=== PATIENT | male | born 1995 | race American Indian/Alaskan Native ===

== ENCOUNTER 2020-07-28 20:48 | Emergency (ER) | payer BC ==
[2020-07-28] MEDS ORDERED: IBUPROFEN 800 MG TAB PO ONE (21:05)
--- NOTE | 2020-07-28 21:10 | Emergency Department Report ---
ED General Adult HPI - General Stated complaint: BODYACHES/FLU SX/THROAT PAIN PUI?: Yes Time Seen by Provider: 07/28/20 21:05 - History of Present Illness Initial comments: This is a very pleasant 25-year-old otherwise healthy male who presents the emergency department chief complaint of generalized body aches, fever as high as 103, sore throat, malaise, loss of smell over the past 3 days. He reports 2 other family members also have similar symptoms. He denies any known past medical history, current medication use or known allergies to medications that he is aware of. He denies any associated chest pain, shortness of breath, nausea,, diarrhea, headache, dizziness, blurry vision, weakness or any other associated symptoms. - Related Data Previous Rx's Medication Instructions Recorded Last Taken Type Acetaminophen [8 Hour 650 mg PO Q6HR #30 tablet.er 07/28/20 Unknown Rx Acetaminophen] Amoxicillin [Trimox CAP] 500 mg PO BID #20 capsule 07/28/20 Unknown Rx Ibuprofen [Motrin 800 MG tab] 800 mg PO ONCE #30 tablet 07/28/20 Unknown Rx methylPREDNISolone [Medrol 4MG 4 mg PO ONCE #1 tab.ds.pk 07/28/20 Unknown Rx DOSEPAK (21 tabs)] Allergies Allergy/AdvReac Type Severity Reaction Status Date / Time No Known Allergies Allergy Unverified 07/28/20 20:57 ED Review of Systems ROS: Stated complaint: BODYACHES/FLU SX/THROAT PAIN Other details as noted in HPI Comment: All other systems reviewed and negative Constitutional: see HPI, fever, malaise. denies: chills Eyes: denies: eye pain, eye discharge, vision change ENT: as per HPI, throat pain. denies: ear pain Respiratory: see HPI. denies: cough, shortness of breath, wheezing Cardiovascular: denies: chest pain, palpitations Endocrine: no symptoms reported Gastrointestinal: diarrhea. denies: abdominal pain, nausea Genitourinary: denies: urgency, dysuria Musculoskeletal: as per HPI, myalgia. denies: back pain, joint swelling, arthralgia Skin: denies: rash, lesions Neurological: denies: headache, weakness, paresthesias Psychiatric: denies: anxiety, depression Hematological/Lymphatic: denies: easy bleeding, easy bruising ED Past Medical Hx - Medications Home Medications: Home Medications Medication Instructions Recorded Confirmed Last Taken Type Acetaminophen [8 Hour 650 mg PO Q6HR #30 tablet.er 07/28/20 Unknown Rx Acetaminophen] Amoxicillin [Trimox CAP] 500 mg PO BID #20 capsule 07/28/20 Unknown Rx Ibuprofen [Motrin 800 MG tab] 800 mg PO ONCE #30 tablet 07/28/20 Unknown Rx methylPREDNISolone [Medrol 4MG 4 mg PO ONCE #1 tab.ds.pk 07/28/20 Unknown Rx DOSEPAK (21 tabs)] ED Physical Exam - General General appearance: alert, in no apparent distress - Head Head exam: Present: atraumatic, normocephalic - Eye Eye exam: Present: normal appearance, PERRL, EOMI Pupils: Present: normal accommodation - ENT ENT exam: Present: normal exam, mucous membranes moist, TM's normal bilaterally. Absent: normal orophraynx (Bilateral tonsillar exudate with erythema. No peritonsillar bulging, retropharyngeal bulging or tongue elevation.) - Neck Neck exam: Present: normal inspection, full ROM. Absent: tenderness, meningismus - Respiratory Respiratory exam: Present: normal lung sounds bilaterally. Absent: respiratory distress, wheezes, rales, rhonchi, stridor, chest wall tenderness - Cardiovascular Cardiovascular Exam: Present: regular rate, normal rhythm. Absent: systolic murmur, diastolic murmur, rubs, gallop - GI/Abdominal GI/Abdominal exam: Present: soft, normal bowel sounds. Absent: distended, tenderness, guarding, rebound, rigid - Rectal Rectal exam: Present: deferred - Extremities Exam Extremities exam: Present: normal inspection, full ROM, normal capillary refill. Absent: tenderness, calf tenderness (Negative Homans' sign bilaterally. No posterior calf tenderness.) - Back Exam Back exam: Present: normal inspection, full ROM. Absent: tenderness, CVA tenderness (R), CVA tenderness (L) - Neurological Exam Neurological exam: Present: alert, oriented X3, normal gait - Psychiatric Psychiatric exam: Present: normal affect, normal mood - Skin Skin exam: Present: warm, dry, intact, normal color. Absent: rash ED Medical Decision Making - Medical Decision Making Patient nontoxic in no acute distress. He did have a fever in triage and was given Motrin. He is otherwise nontoxic. He did not have any hypoxia. I do have a high suspicion that this could be COVID-19 and recommended that he treat his temperature with Tylenol alternating with Motrin and get a portable pulse oximeter to check his oxygen level frequently and if below 90 he needs to return to the ER. Recommended oral steroids, antibiotics for his throat, and alternate between Tylenol Motrin increase fluids. Recommend he return the emerge part medially if he develops any change or worsening symptoms. He verbalized understand the diagnosis, treatment plan and follow-up instructions all of his questions were answered. I recommended the patinet self quarantine per the CDC guidelines for 14 days. - Differential Diagnosis Strep throat, COVID-19, influenza Critical care attestation.: If time is entered above; I have spent that time in minutes in the direct care of this critically ill patient, excluding procedure time. ED Disposition Clinical Impression: Acute viral syndrome, Suspected COVID-19 virus infection Acute tonsillitis Qualifiers: Pharyngitis/tonsillitis etiology: streptococcus Streptococcal tonsillitis recurrence: non-recurrent Qualified Code(s): J03.00 - Acute streptococcal tonsillitis, unspecified Disposition: DC-01 TO HOME OR SELFCARE Is pt being admited?: No Condition: Stable Instructions: Tonsillitis, [id number], Viral Illness, Adult Prescriptions: Acetaminophen [8 Hour Acetaminophen] 650 mg PO Q6HR #30 tablet.er methylPREDNISolone [Medrol 4MG DOSEPAK (21 tabs)] 4 mg PO ONCE #1 tab.ds.pk Ibuprofen [Motrin 800 MG tab] 800 mg PO ONCE #30 tablet Amoxicillin [Trimox CAP] 500 mg PO BID #20 capsule Referrals: [facility] [Provider Group] - 3-5 Days Forms: Work/School Release Form(ED) Time of Disposition: 21:09
[2020-07-28 21:12] VITALS: BP 119/69
== END 2020-07-28 21:47 | disposition home or self-care (01) ==
LOC: ED 20:48
DX: J03.90 Acute tonsillitis, unspecified (principal); B34.9 Viral infection, unspecified; Z20.822 Contact with and (suspected) exposure to COVID-19; Z79.1 Long term (current) use of non-steroidal anti-inflammatories (NSAID); Z79.2 Long term (current) use of antibiotics; Z79.899 Other long term (current) drug therapy
CPT/HCPCS: 99282